=== PATIENT | male | born 1950 | race Caucasian/White ===

== ENCOUNTER → 2018-05-17 15:37 | Outpatient (CLI) | payer MEDICARE, OTHER | END | disposition home or self-care (01) | LOC: D.MRI 15:37 | DX: M25.562 Pain in left knee (principal) ==

== ENCOUNTER 2018-07-09 06:58 | Day surgery (SDC) | payer MEDICARE, OTHER ==
[2018-07-08 08:56] LABS: HEMATOCRIT 41.8 % (42.0-54.0); HEMOGLOBIN 14.6 g/dL (13.5-17.5); MCH 32.6 pg (26.0-34.0); MCHC 34.9 g/dL (31.0-37.0); MCV 93.3 fL (80.0-100.0); MEAN PLATELET VOLUME 9.3 fL (7.4-10.4); RBC 4.48 10x6/uL (4.20-6.10); RDW 12.7 % (11.5-14.5); WBC 5.4 10x3/uL (4.8-10.8)
[~2018-07-09] VITALS: Ht 182.9 cm; Wt 95.3 kg
[~2018-07-09 06:58] MED LIST: LISINOPRIL10 MG PO
[2018-07-09 07:53] VITALS: BP 130/79; Ht 182.9 cm; Wt 95.3 kg
[2018-07-09] MEDS ORDERED: PERCOCET 5-3251 TAB PO (09:40)
--- NOTE | 2018-07-09 11:25 | NUR ---
DISCHARGE INSTRUCTIONS REVIEWED WITH PATIENT AND SPOUSE. PATIENT AMBULATING AROUND ROOM WITH CRUTCHES WITHOUT DIFFICULTY. DISCHARGED HOME VIA WHEELCHAIR TO PRIVATE VEHICLE WITH SPOUSE
--- NOTE | 2018-07-09 14:24 | OP ---
PATIENT NAME: GEORGETTE BENNETT MEDICAL RECORD: [id number] :54 LOCATION:[facility] ADMISSION DATE: SURGEON: BENJAMIN BURR DO DATE OF OPERATION: 07/09/2018 PROCEDURE PERFORMED: Left knee arthroscopy with partial medial meniscectomy. PREOPERATIVE DIAGNOSIS: Left knee medial meniscal tear. 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 INDICATIONS: Mr. Bennett is a 68-year-old male who presented to my office after having left knee pain for quite some time. He could not run on it without having aching and popping. He was examined and seen to have medial joint line tenderness, I told him he likely had a meniscal tear. I got an MRI and indeed did show he had a meniscal tear of the medial meniscus. He wanted to postpone surgery and see if he could get better on his own without having surgery and he tried to run and it gave him pain, so he decided to have a partial medial meniscectomy. He was informed of the risks and benefits including infection, bleeding, damage to nerve or vessel, need for the surgery, further tear of the meniscus and signed the consent. SURGEON: Benjamin Burr DO DESCRIPTION OF PROCEDURE: The patient was taken to the operative suite, laid in supine position, given general anesthetic and LMA was placed. Two grams Ancef preoperatively. The left lower extremity was prepped and draped in sterile fashion. Timeout was performed. Everyone was in agreement as to the correct, side, site, patient, and procedure. The knee was then flexed down. The portal sites were injected on the anterior, medial, and lateral side of the knee with 0.25% Marcaine with epinephrine and about 2 mL in each where the proposed sites would be. The lateral portal was then established with an 11-blade scalpel. Trocar was entered into the knee and the knee was brought in extension. The suprapatellar pouch was inspected. No loose body was seen in it, same as the lateral and medial gutters. The knee was then flexed down and the scope entered into the medial compartment. Grade II chondromalacia was noted at that time with the medial femoral condyle as well as quite a large meniscal tear of the medial meniscus from the middle third down back to the posterior horn of the meniscus. This was bit out with a biter and trimmed out with a shaver as well as any loose cartilage that was off the femur, it was done as well. Prior to that, the medial portal was established with an 18-gauge spinal needle and 11-blade scalpel. The probe was then brought in and the ACL was probed and seen to be in good position and not loose. The probe was then parked in the notch and then the knee was [id number]. Lateral compartment was then inspected. The cartilage looked good on the femur and the tibia. The meniscus looked in good shape as well. It did not have any tears in it. The patellar tracking was then checked and patella tracked very well in the trochlea. The suction was then turned on. The water was turned off. The scope was removed from the knee. The portal sites were closed with 4-0 Monocryl in inverted interrupted fashion. Steri-Strips, Telfa, Tegaderm were then placed on the knee. 4 x 4s, ABD, Webril, and Mack wrap were then placed on the knee and ADRIAN hose stockinette placed up to the knee. The patient was then awakened and taken to recovery in stable condition. OPERATIVE REPORT [id number] GEORGETTE BENNETT BLOOD LOSS: Minimal. COMPLICATIONS: None. TRANSINT:[id number] Voice Confirmation ID: [id number] DOCUMENT ID: [id number] BENJAMIN BURR DO at 1424 CC: [id number] DICTATION DATE: 07/09/18 0944 HEAD OF OPERATION AND LOGISTICS: 07/09/18 1132 [facility] [address] [place] [address]
== END 2018-07-09 11:25 | disposition home or self-care (01) ==
LOC: D.OPS 06:58 → D.PAN 09:45 → D.OPS 09:45 → D.PAN 11:20 → D.OPS 11:25
PROVIDERS: Anesthesiology; ATTEND Orthopaedic Surgery
DX: S83.242A Other tear of medial meniscus, current injury, left knee, initial encounter (principal); M94.262 Chondromalacia, left knee; Z01.812 Encounter for preprocedural laboratory examination; X58.XXXA Exposure to other specified factors, initial encounter